=== PATIENT | male | born 1955 | race Caucasian/White ===

== ENCOUNTER 2023-01-27 09:03 | Emergency (ER) | payer MEDICARE, SELFPAY ==
[2023-01-27] VITALS (36 sets, daily range): BP systolic 103–158; BP diastolic 70–117; PULSE 46–107; RESP 10–21; TEMP 36.8; O2SAT 98–100
--- NOTE | 2023-01-27 09:00 | RT.EKG_ITS ---
APPROVED REPORT Exam: Resting ECG Reason for Exam: Heart fluttering Patient Location: E HR:91 bpm ECG Measurements Heart Rate 91 AXIS VT 188 P 54 QRSd 89 QRS 0 QT 352 T 75 QTc 447 Conclusion Sinus pause...long R-R interval, normal QRSd ? atrial flutter
--- NOTE | 2023-01-27 09:37 | W.ED.GENAD ---
Discharge Plan Disposition Patient Disposition: Home Discharge Details Clinical Impression: Atrial tachycardia ED Provider: Donny Le Home Meds and New Rx's Prescriptions: No Action Marleny Renner U-300 Insulin 300 unit/mL (1.5 mL) insulin pen 16 unit subcut Q24H Patient Comments: 16 units insulin lispro [Humalog KwikPen Insulin] 100 unit/mL insulin pen 1 sliding scale dose subcut USEASDIRECTD alogliptin-metformin 12.5-500 mg tablet 1 tab PO ONCE Patient Comments: 500mg Daily Eliquis 5 mg tablet 5 mg PO DAILY AM Discharge Instructions Instructions: Atrial Flutter (ED), Cardioversion (DC) Additional Instructions: As discussed please take your medications as prescribed and please only perform light activity for the next 24 to 48 hours. Then you may slowly increase activity as tolerated. Return immediately to the emergency department for any new or significant worsening symptoms otherwise follow-up with your lawn sprinkler installer for further discussion of your condition and management of your symptoms. Referrals: [facility] [Outside] - 3 days Discharge Data Discharge Date/Time-TO BE ENTERED AT DEPARTURE: 01/27/23 14:59 Medical Decision Making <Donny Le NP - Last Filed: 01/27/23 15:51> Patient presenting to the emergency department for chief complaint palpitations. Patient reports since 2021 this is his third episode where he has had palpitations. Patient reports that he was cardioverted during these events and that the last event he was placed upon anticoagulation. Patient has past medical history of diabetes otherwise is healthy and active. He does state that he had a slightly longer walk yesterday and did have more cocktails and tequila than normal last night but denies any excessive amount. He states with each time he got up in the middle the night to use the restroom and started feeling his palpitations. He does state today with walking from the car to the emergency department he did have some shortness of breath but only with ambulation and activity. Denies any pain or discomfort or other symptoms, does state that he has been continuing to take his anticoagulation medication. Physical exam shows well-appearing patient with no obvious distress, normal cardiac exam with no irregularity noted, patient slightly hypertensive on initial check-in with noted slight tachycardia with rate of 104 on initial vital signs. Exam otherwise noncontributory. We will plan on performing labs, EKG, and obtaining records from [facility] where patient states he has had these other episodes. Please see physician interpretation for full interpretation of EKG but upon my review patient is in sinus rhythm with 1 episode what appears to be a sinus pause but otherwise nondiagnostic EKG. No acute signs of STEMI noted. We will continue to monitor. Reviewed patient's labs and CBC is overall unremarkable, CMP did show slight increase in potassium of 5.3, glucose of 367 magnesium 1.6 initial troponin of nondetected and BNP of 2061. TSH is within normal range and no alcohol in patient's system. Will hydrate patient to help with the potassium, will give oral mag, and did discuss case with patient's lawn sprinkler installer Dr. Paul. While I was waiting to speak with Dr. Ashby patient did stand up to simply use urinal and had heart rate elevated into the 200s, stated he felt lightheaded, and then had on monitor what appeared to be a A-fib type of rhythm. Unfortunately were not able to catch this on an EKG. Also while pending speaking with [facility] cardiology did receive previous emergency department note of previous episodes similar to this that it appeared to show some atrial tachycardia/flutter after multiple doses of adenosine. Patient was cardioverted dose times with only needing single cardioversion and initial success. Spoke with Dr. Paul and discussed cardioversion versus diltiazem including risk versus benefit. She recommended cardioversion given that patient has a resting heart rate normally in the 40s and previous episodes responded well to this. She did state that if wanted we could give single dose of diltiazem but she was concerned with outpatient use given baseline. Discussed with patient risk versus benefit of each option and after discussion patient desired cardioversion. Patient gave verbal consent and please see procedure note for procedure. Of note procedure was performed with attending physician Dr. Ash at bedside also assisting with procedural sedation. Patient tolerated procedure well, was given remainder of second liter of fluids along with 1 g of mag. Please see physician interpretation for full interpretation of postprocedural EKG but it does appear that underlying rhythm now is sinus bradycardia which is patient's baseline. Patient did have greater than 1 hour of observation with no further return of symptoms including with activity. Patient placed upon referral to follow-up with cardiology. After discussion of diagnosis and plan of care patient has no further needs, questions, or concerns and states clear understanding to return to the emergency department for any worsening symptoms. This documentation was generated using [employer] dictation system, please disregard any oddities of phrase or misspellings. Medical Records Medical records reviewed: Yes I reviewed the patient's medical records. Medical records narrative: Reviewed [facility] emergency department records from previous episode. Episode visit was dated 07/12/2022 Lab Data Lab results reviewed: Yes I reviewed the patient's lab results. <Aakash Ash MD - Last Filed: 02/02/23 09:12> Date: 01/27/23 Time: 12:45 Note: Patient seen, examined, and discussed with ERIKA Le. ERIKA Le spoke with patient's lawn sprinkler installer at [facility] who recommended cardioversion. Cardioversion performed under procedural sedation without complication. Mild hypomagnesemia noted. We will give magnesium 1 g IV. I agree with treatment plan as discussed/documented. HPI <Donny Le NP - Last Filed: 01/27/23 15:51> General Mode of arrival: ambulatory. Date/Time Provider Initiated Documentation: 01/27/23 09:10. Limitations to Documentation: no limitations. Information obtained by: patient and RN notes reviewed. History of Present Illness 67 year old M presents to the emergency department with the chief complaint of Palpitations, described as moderate and similar to prior episodes, and is localized to the chest. Patient started experiencing this hour(s) (8) and it has been intermittent. No relieving factors improve symptom(s), No exacerbating factors reported . Patient notes shortness of breath. Patient did receive the following treatments prior to arrival, none Related Data Home Medications Medication Instructions Recorded Confirmed alogliptin 12.5 mg-metformin 500 1 tab PO ONCE 01/27/23 01/27/23 mg tablet apixaban 5 mg tablet (Eliquis) 5 mg PO DAILY AM 01/27/23 01/27/23 insulin glargine U-300 conc 300 16 unit subcut Q24H 01/27/23 01/27/23 unit/mL (1.5 mL) subcutaneous pen (Toujeo SoloStar U-300 Insulin) insulin lispro 100 unit/mL 1 sliding scale dose subcut 01/27/23 01/27/23 subcutaneous pen (Humalog KwikPen USEASDIRECTD (U-100) Insulin) Allergies Allergy/AdvReac Type Severity Reaction Status Date / Time penicillin G AdvReac Intermediate Unverified 01/27/23 14:32 Sulfa (Sulfonamide AdvReac Intermediate Unverified 01/27/23 14:32 Antibiotics) General Stated Complaint: Arrhythmia KELLEY: 2 Review of Systems <Donny Le NP - Last Filed: 01/27/23 15:51> Constitutional Constitutional: Denies chills, Denies fever(s) and Denies malaise Cardiovascular Cardiovascular: Reports as per HPI, Denies chest pain, Denies chest pain with activity, Denies syncope, Denies irregular heart rhythm, Reports palpitations and Reports dyspnea on exertion Respiratory Respiratory: Denies cough and Reports dyspnea on exertion Gastrointestinal Gastrointestinal: Denies abdominal pain, Denies nausea and Denies vomiting Neurologic Neurologic: Denies syncope Endocrine Endocrine: Reports palpitations PFS <Donny Le NP - Last Filed: 01/27/23 15:51> All Active Problems (Updated 01/27/23 @ 14:14 by Donny Le NP) Atrial tachycardia (Acute) Diabetes (Chronic) Social History Smoking risk assessment performed?: No Exam <Donny Le NP - Last Filed: 01/27/23 15:51> Const General: cooperative, healthy appearing, comfortable, no acute distress, not diaphoretic and not ill appearing Nutritional Appearance: average body habitus Orientation: alert, awake and oriented x3 Limitations: mental status not altered Neck Neck: normal visual inspection, full ROM, trachea midline, supple and no anterior neck swelling Carotids: normal carotid upstroke and no bruits Chest Chest: normal inspection of the chest Resp Effort & Inspection: normal respiratory effort and able to speak in complete sentences Auscultation: clear to auscultation bilaterally Cardio Jugular venous pressure: no JVD Palpation: normal PMI Rate: regular rate Rhythm: regular rhythm Heart Sounds: S1 normal, S2 normal, no click, no gallops, no murmurs and no rubs Bruits: no carotid bruits Pulses: radial pulses present bilaterally 2+ Skin General skin exam: no rashes or lesions noted Neuro General: patient alert, patient awake, patient oriented x3, tone normal and moves all extremities Course <Donny Le NP - Last Filed: 01/27/23 15:51> Vital Signs Vital signs: Vital Signs Temperature 36.8 C 01/27/23 09:10 Pulse 104 H 01/27/23 09:10 Respiratory Rate 18 01/27/23 09:10 Blood Pressure 112/99 H 01/27/23 09:10 Pulse Oximetry 98 01/27/23 09:10 Temperature 36.8 C 01/27/23 09:10 Temperature Source Oral 01/27/23 09:10 Pulse 104 H 01/27/23 09:10 Respiratory Rate 18 01/27/23 09:10 Blood Pressure 112/99 H 01/27/23 09:10 Blood Pressure Position Sitting 01/27/23 09:10 Pulse Oximetry 98 01/27/23 09:10 Oxygen Delivery Method Room Air 01/27/23 09:10 Oxygen Flow Rate 0 01/27/23 09:10 Procedures <Donny Le NP - Last Filed: 01/27/23 15:51> Other Description: Cardioversion was performed. Timeout was done before procedure and patient signed consents along with discussion of risk versus benefit was discussed prior to procedure. Patient had synchronized cardioversion with 150 J after appropriate procedural sedation was obtained. This was successful in cardioverting patient into sinus bradycardia which is patient's baseline rhythm. Patient monitored for greater than 1 hour postprocedure with no worrisome cardiac abnormality or rhythms noted and patient had no return of symptoms even with activity. <Aakash Ash MD - Last Filed: 02/02/23 09:12> Procedural Sedation Indication: other (cardioversion) ASA Class: I Preparation: cafeteria monitor applied, pulse oximeter, capnometry used, supplemental O2 applied and suction/airway equipment at bedside IV Propofol dose (mg): 85 Patient Tolerated Procedure: well and no complications Complications: none Critical Care Time <Donny Le NP - Last Filed: 01/27/23 15:51> Critical Care Time Critical Care Time: Yes Total Critical Care Time: 45 Attestation: Due to atrial flutter/atrial tachycardia with high probability of imminent or life threatening deterioration in the patient?s condition without intervention and treatment. Time spent documenting, reviewing labs and radiographs, monitoring titration/ Vital signs, and speaking with [facility] cardiology Dr. Paul
[2023-01-27 09:50] LABS: Abs Immature Grans 0.01 10^3/uL (0.0-0.06); Absolute Basophil Count 0.04 10^3/uL (0.0-0.2); Absolute Eosinophil Count 0.07 10^3/uL (0.0-0.7); Absolute Lymphocyte Count 0.93 10^3/uL (1.2-3.4); Absolute Monocyte Count 0.47 10^3/uL (0.1-0.8); Absolute Neutrophil Count 2.95 10^3/uL (1.2-6.7); Basophils % 0.9; Eosinophils % 1.6; HCT 42.2 % (40.0-50.0); HGB 14.4 g/dL (13.5-17.5); Immature Grans % 0.2; Lymphocytes % 20.8; MCH 31.6 pg (27.0-33.0); MCHC 34.1 % (32.0-36.0); MCV 93 fL (80-95); MPV 10.7 fL (8.0-11.0); Monocytes % 10.5; Platelet Count 171 10^3/uL (130-400); RBC 4.56 10^6/uL (4.36-5.78); RDW 12.9 % (11.8-14.1); RDW-SD 43.8 fL; WBC 4.47 10^3/uL (4.4-10.8)
[2023-01-27 10:15] LABS: ALT 31 U/L (16-63); AST 39 U/L (15-37); Albumin 3.6 g/dL (3.4-5.0); Alkaline Phosphatase 85 U/L (46-116); Anion Gap 4.9 mmol/L (3-11); BUN 25 mg/dL (7-18); Bilirubin, Total 0.6 mg/dL (0.2-1.0); CO2 29.1 mmol/L (21.0-32.0); CREATININE 1.1 mg/dL (0.70-1.30); Calcium 9.3 mg/dL (8.5-10.1); Chloride 103 mmol/L (98-107); Glucose 367 mg/dL (74-106); Magnesium 1.6 mg/dL (1.8-2.4); NT-proBNP 2061 pg/mL (<300); Potassium 5.3 mmol/L (3.5-5.1); Sodium 137 mmol/L (136-145); TSH (W/Ref FT4) 2.12 uIU/mL (0.36-3.74); Total Protein 7.2 g/dL (6.4-8.2); Troponin I < 50 ng/L (<or=60)
[2023-01-27 10:25] LABS: ETHANOL BLOOD < 3.0 mg/dL (<10)
--- NOTE | 2023-01-27 10:30 | RT.EKG_ITS ---
APPROVED REPORT Exam: Resting ECG Reason for Exam: Palpitations Patient Location: E HR:48 bpm ECG Measurements Heart Rate 48 AXIS IL 141 P 80 QRSd 96 QRS 7 QT 436 T 11 QTc 392 Conclusion Sinus bradycardia...rate< 60
[2023-01-27] MEDS: Magnesium Oxide 400 MG TAB PO (10:47)
[2023-01-27] MEDS: Normal Saline 1,000 ML 1000 ML IV ×2 (10:48→12:18)
[2023-01-27] MEDS: MAGNESIUM SULFATE 1 GM/100 ML BAG IVPB (12:48)
[2023-01-27 13:21] LABS: Troponin I 53 ng/L (<or=60)
--- NOTE | 2023-01-27 14:21 | NUR.NOTE ---
Referral Faxed to [facility] Cardiac due to Atrial Tachardia- Cardio Version. He should be seen next week.
--- NOTE | 2023-01-27 14:55 | NUR.NOTE ---
Nursing Note:1230 pre cardioversion procedure VS: 158/106 Pulse: 105 SPo2: 100% RA RR: 18 Co2: 36 Patient signed consent with MD Nilsa Time out Preformed @ 1233 with providers, RN and RT present. 1236 Prop given. Shock perform @ 1238 with good results . Patient awoken at 1243 Post Preceduer VS 112/70 99% RA Pulse: 48 RR: 16 Patient tolerated procedure well.
--- NOTE | 2023-01-27 15:11 | NUR.NOTE ---
Nursing Note: 1400 patient walked in hallway with this RN. Tolerated walking well with no spikes in pulse rate. After walking to and from Bathroom Pulse 56/BPM
== END 2023-01-27 14:59 | disposition home or self-care (01) ==
PROVIDERS: Emergency Provider Nurse Practitioner Family
DX: I47.19 Other supraventricular tachycardia; E83.42 Hypomagnesemia; R06.02 Shortness of breath; E11.9 Type 2 diabetes mellitus without complications; Z79.4 Long term (current) use of insulin; Z79.01 Long term (current) use of anticoagulants; Z88.0 Allergy status to penicillin; Z88.2 Allergy status to sulfonamides
CPT/HCPCS: 80053; 92960; 93005; 96361; 96365; 99291; 80320; 83735; 83880; 84443; 84484; 85025; 93010; J3475